=== PATIENT | female | born 1965 | race African-American/Black ===

== ENCOUNTER 2019-11-14 16:31 | Emergency (ER) | payer BC ==
[~2019-11-14] VITALS: Ht 149.9 cm; Wt 75.3 kg
== END 2019-11-14 17:21 | disposition home or self-care (01) ==
LOC: FSED 16:31
DX: J32.9 Chronic sinusitis, unspecified (principal)
CPT/HCPCS: 99282

== ENCOUNTER → 2020-10-09 | Outpatient (CLI) | payer OTHER ==
[~2020-10-09] MED LIST: COVID-19 VACC, MRNA(MODERNA)/PF 100 MCG/0.5 ML VIAL IM ONE
== END ==
LOC: VACCPMC 16:30
DX: Z23 Encounter for immunization (principal); Z20.828 Contact with and (suspected) exposure to other viral communicable diseases

== ENCOUNTER → 2020-11-18 | Outpatient (CLI) | payer OTHER | END | DRG 951 | LOC: VACCPMC 10:37 | DX: Z23 Encounter for immunization (principal); Z20.822 Contact with and (suspected) exposure to COVID-19 | CPT/HCPCS: 0012A; 91301 ==

== ENCOUNTER → 2022-03-05 | Outpatient (CLI) | payer BC | LOC: US 16:05 | PROVIDERS: ATTEND Family Medicine | DX: R94.5 Abnormal results of liver function studies (principal) | CPT/HCPCS: 74176; 76705 ==

== ENCOUNTER → 2024-04-25 | Outpatient (REF) | payer BC | LOC: RAD 14:14 | PROVIDERS: ATTEND Family Medicine | DX: R06.02 Shortness of breath (principal); R60.9 Edema, unspecified | CPT/HCPCS: 93306 ==

== ENCOUNTER 2024-07-17 11:30 | Inpatient (IN) | payer BC ==
[~2024-07-17] VITALS: Ht 149.9 cm; Wt 67.8 kg
[2024-07-17] VITALS (9 sets, daily range): BP systolic 147–176; BP diastolic 81–104; PULSE 96–135; RESP 18–27; TEMP 98.3–100.1; O2SAT 100
[2024-07-17 12:30] LABS: BASOPHILS # (AUTO) 0.1 (0.0-0.1); BASOPHILS % 0.7 % (0.0-1.0); EOSINOPHILS % 0.3 % (0.0-6.0); HEMATOCRIT 42.8 % (34.2-44.1); HEMOGLOBIN 13.6 g/dL (12.0-16.0); LYMPHOCYTES # (AUTO) 1.6 (1.0-3.2); MEAN CORPUSCULAR HEMOGLOBIN 31.8 pg (28-32); MEAN CORPUSCULAR HGB CONC 31.8 g/dL (31-35); MONOCYTES # (AUTO) 0.6 (0.2-0.8); MONOCYTES % 4.9 % (4.4-11.3); NEUTROPHILS # (AUTO) 8.4 (2.1-6.9); NEUTROPHILS % 72.6 % (38.7-80.0); PLATELET COUNT 276 x10e3/uL (140-360); RED BLOOD COUNT 4.28 x10e6/uL (3.6-5.1); RED CELL DISTRIBUTION WIDTH 14.5 % (11.7-14.4); WHITE BLOOD COUNT 11.56 x10e3/uL (4.8-10.8)
[2024-07-17 12:59] LABS: ALBUMIN 2.9 g/dL (3.5-5.0); ALBUMIN/GLOBULIN RATIO 0.8 (0.8-2.0); BILIRUBIN,TOTAL 0.4 mg/dL (0.2-1.2); CREATININE, SERUM 1.49 mg/dL (0.57-1.11); TOTAL PROTEIN 6.6 g/dL (6.5-8.1)
[2024-07-17] MEDS: LABETALOL HCL 5 MG/ML 20ML VIAL IV STA (13:19)
[2024-07-17 13:28] LABS: CLARITY,URINE CLEAR (CLEAR); COLOR,URINE STRAW (YELLOW); LEUKOCYTE ESTERASE ,URINE NEGATIVE (NEGATIVE); PH,URINE 6 (5 - 7)
[2024-07-17 13:29] LABS: BILIRUBIN,URINE NEGATIVE (NEGATIVE); GLUCOSE, URINE >=1000 (NEGATIVE); KETONES,URINE NEGATIVE (NEGATIVE); NITRITE,URINE NEGATIVE (NEGATIVE); PROTEIN,URINE DIPSTICK >=300 (NEGATIVE); URINE UROBILINOGEN 0.2 mg/dL (0.2 - 1)
[2024-07-17 13:30] LABS: BACTERIA,URINE FEW /HPF; EPITHELIAL CELLS,URINE RARE /LPF; RBC,URINE 0-5 /HPF (0-5); WBC,URINE (MAN) 0-5 /HPF (0-5)
[2024-07-17] MEDS: FUROSEMIDE INJ 10 MG/ML 4 ML VIAL IV ONE (14:36)
[2024-07-17] MEDS ORDERED: SODIUM CHLORIDE FLUSH 10 ML SYR INJ PRN (14:45)
[2024-07-17] MEDS: ASPIRIN 81 MG CHEW TAB PO ONE (16:01)
[2024-07-17] MEDS: NIFEDIPINE CR 30 MG TAB PO SCH (16:01)
[2024-07-17] MEDS: HYDRALAZINE HCL 20 MG/ML VIAL IV PRN (16:02)
[2024-07-17] MEDS: MUPIROCIN 2% OINT 22 GM TUBE NS SCH (16:02)
[2024-07-17 17:13] LABS: TROPONIN I 0.047 ng/mL (0-0.300)
[2024-07-17] MEDS: ACETAMINOPHEN 325 MG TAB PO PRN (20:26)
[2024-07-17] MEDS: LABETALOL HCL 5 MG/ML 20ML VIAL IV PRN (21:19)
[2024-07-17] MEDS ORDERED: DOCUSATE SODIUM 100 MG CAP PO PRN (21:30)
[2024-07-17] MEDS ORDERED: LIDOCAINE 4% PATCH TP PRN (21:30)
[2024-07-17] MEDS ORDERED: DIPHENHYDRAMINE HCL 25 MG CAP PO PRN (21:30)
[2024-07-17] MEDS ORDERED: DEXTROSE 50% SYRINGE 50 ML IV PRN ×2 (21:30)
[2024-07-17] MEDS ORDERED: POTASSIUM CHLORIDE 20 MEQ TAB CR PO PRN (21:30)
[2024-07-17] MEDS ORDERED: ALBUTEROL/IPRATROPIUM 3 ML NEB NEB PRN (21:30)
[2024-07-17] MEDS ORDERED: MELATONIN 5 MG TABLET PO PRN (21:30)
[2024-07-17] MEDS ORDERED: BENZONATATE 100 MG CAP PO PRN (21:30)
[2024-07-17] MEDS: METOPROLOL TARTRATE 25 MG TAB PO SCH (21:58)
[2024-07-17] MEDS: INSULIN GLARGINE 100 UNITS/ML VIAL SQ SCH (22:01)
[2024-07-17] MEDS: INSULIN LISPRO 100 UNIT/1 ML 3ML VIAL SQ SCH (22:02)
[2024-07-18] VITALS (24 sets, daily range): BP systolic 123–223; BP diastolic 67–127; PULSE 91–112; RESP 14–31; TEMP 98.1–99; O2SAT 96–100
[2024-07-18] MEDS: FUROSEMIDE INJ 100 MG in SODIUM CHLORIDE 0.9% 90 ML IV SCH ×2 (00:42→10:24)
[2024-07-18] MEDS: HYDRALAZINE HCL 20 MG/ML VIAL IV PRN (05:21)
[2024-07-18] MEDS: LABETALOL HCL 5 MG/ML 20ML VIAL IV STA (06:20)
[2024-07-18 06:52] LABS: BASOPHILS % 0.4 % (0.0-1.0); EOSINOPHILS % 0.3 % (0.0-6.0); HEMATOCRIT 43.7 % (34.2-44.1); HEMOGLOBIN 13.8 g/dL (12.0-16.0); LYMPHOCYTES # (AUTO) 1.5 (1.0-3.2); LYMPHOCYTES % 13.6 % (18.0-39.1); MEAN CORPUSCULAR HEMOGLOBIN 31.7 pg (28-32); MEAN CORPUSCULAR HGB CONC 31.6 g/dL (31-35); MEAN CORPUSCULAR VOLUME 100.5 fL (81-99); MONOCYTES # (AUTO) 0.6 (0.2-0.8); MONOCYTES % 5.3 % (4.4-11.3); NEUTROPHILS # (AUTO) 7.9 (2.1-6.9); NEUTROPHILS % 73.6 % (38.7-80.0); PLATELET COUNT 268 x10e3/uL (140-360); RED BLOOD COUNT 4.35 x10e6/uL (3.6-5.1); RED CELL DISTRIBUTION WIDTH 14.3 % (11.7-14.4); WHITE BLOOD COUNT 10.76 x10e3/uL (4.8-10.8)
[2024-07-18 07:33] LABS: ALBUMIN 2.7 g/dL (3.5-5.0); ALBUMIN/GLOBULIN RATIO 0.8 (0.8-2.0); ANION GAP 20.6 mmol/L (8-16); BILIRUBIN,TOTAL 0.3 mg/dL (0.2-1.2); CALCIUM 8.8 mg/dL (8.4-10.2); CREATININE, SERUM 1.85 mg/dL (0.57-1.11); POTASSIUM 3.6 mmol/L (3.5-5.1); TOTAL PROTEIN 6.2 g/dL (6.5-8.1)
[2024-07-18 07:55] LABS: TROPONIN I 0.099 ng/mL (0-0.300)
[2024-07-18 08:08] LABS: CHOL/HDL RATIO 6.6 (3.0-3.6); CHOLESTEROL 375 MD/DL (0-199); HDL CHOLESTEROL 57 MG/DL (40-60); MAGNESIUM 1.8 MG/DL (1.3-2.1); PHOSPHORUS 4.3 MG/DL (2.3-4.7); TRIGLYCERIDES 796 MG/DL (0-149)
[2024-07-18] MEDS: PANTOPRAZOLE SOD 40 MG TABEC PO SCH (08:27)
[2024-07-18 08:29] LABS: THYROID STIMULATING HORMONE 1.641 uIU/mL (0.350-4.940)
[2024-07-18] MEDS: LABETALOL HCL 5 MG/ML 20ML VIAL IV ONE (08:31)
[2024-07-18] MEDS: ACETAMINOPHEN 325 MG TAB PO PRN (08:38)
[2024-07-18] MEDS ORDERED: LABETALOL HCL 5 MG/ML 20ML VIAL IV PRN (10:00)
[2024-07-18] MEDS: ASPIRIN 81 MG ENTERIC COATED PO SCH (10:26)
[2024-07-18] MEDS: HEPARIN SOD (PORCINE) 5,000 UNIT/ML VIAL SC SCH (10:26)
[2024-07-18] MEDS: CARVEDILOL 12.5 MG TAB PO SCH (10:27)
[2024-07-18] MEDS: ONDANSETRON HCL INJ 2MG/ML 2ML 2 MG/ML VIAL IV PRN (12:56)
[2024-07-18] MEDS: HYDROCODONE/APAP 5MG-325MG TAB PO PRN (12:57)
[2024-07-18] MEDS ORDERED: ALBUMIN 25% 12.5GM 0.25 GM/ML BTL IV SCH (14:00)
[2024-07-18] MEDS: ALBUMIN 25% 12.5GM 50ML 50 ML IV SCH (15:02)
[2024-07-18] MEDS: FENOFIBRATE 145 MG TAB PO SCH (15:05)
[2024-07-18] MEDS ORDERED: ENOXAPARIN SOD INJ 40 MG/0.4 ML SYR SC SCH (17:00)
[2024-07-18] MEDS: SUMATRIPTAN SUCCINATE 6 MG/0.5 ML VIAL SC ONE (19:48)
[2024-07-18] MEDS ORDERED: ATORVASTATIN 40 MG TAB PO SCH (21:00)
[2024-07-18] MEDS: ATORVASTATIN 40 MG TAB PO SCH (22:02)
[2024-07-19] VITALS (28 sets, daily range): BP systolic 88–170; BP diastolic 61–108; PULSE 93–120; RESP 16–31; TEMP 98.2–98.9; O2SAT 92–100
[2024-07-19 06:13] LABS: COMPLEMENT C3 156 mg/dL (82-167)
[2024-07-19 06:47] LABS: BASOPHILS % 0.5 % (0.0-1.0); EOSINOPHILS % 0.5 % (0.0-6.0); HEMATOCRIT 37.2 % (34.2-44.1); HEMOGLOBIN 11.9 g/dL (12.0-16.0); LYMPHOCYTES # (AUTO) 1.3 (1.0-3.2); LYMPHOCYTES % 15.1 % (18.0-39.1); MEAN CORPUSCULAR HEMOGLOBIN 31.8 pg (28-32); MEAN CORPUSCULAR VOLUME 99.5 fL (81-99); MONOCYTES # (AUTO) 0.4 (0.2-0.8); MONOCYTES % 5.1 % (4.4-11.3); NEUTROPHILS # (AUTO) 6.4 (2.1-6.9); PLATELET COUNT 232 x10e3/uL (140-360); RED BLOOD COUNT 3.74 x10e6/uL (3.6-5.1); RED CELL DISTRIBUTION WIDTH 14.5 % (11.7-14.4); WHITE BLOOD COUNT 8.48 x10e3/uL (4.8-10.8)
[2024-07-19 06:58] LABS: COMPLEMENT C4 40 mg/dL (12-38)
[2024-07-19 07:14] LABS: ALBUMIN 3.6 g/dL (3.5-5.0); ALBUMIN/GLOBULIN RATIO 1.5 (0.8-2.0); ANION GAP 16.5 mmol/L (8-16); BILIRUBIN,TOTAL 0.8 mg/dL (0.2-1.2); CALCIUM 8.8 mg/dL (8.4-10.2); CREATININE, SERUM 1.8 mg/dL (0.57-1.11); POTASSIUM 3.5 mmol/L (3.5-5.1)
[2024-07-19 11:49] LABS: ANTI DNA DS ANTIBODY <1 IU/mL (0-9)
[2024-07-19] MEDS: ALBUMIN 25% 12.5GM 50ML 50 ML IV ONE (12:33)
[2024-07-19] MEDS: SUMATRIPTAN SUCCINATE 6 MG/0.5 ML VIAL SC ONE (12:37)
[2024-07-19] MEDS: METOLAZONE 5 MG TAB PO ONE (12:44)
[2024-07-19] MEDS: INSULIN GLARGINE 100 UNITS/ML VIAL SQ SCH (20:52)
[2024-07-20] VITALS (23 sets, daily range): BP systolic 100–169; BP diastolic 65–103; PULSE 83–113; RESP 12–29; TEMP 98.2–98.8; O2SAT 92–100
[2024-07-20 06:43] LABS: BASOPHILS % 0.1 % (0.0-1.0); EOSINOPHILS % 0.4 % (0.0-6.0); HEMOGLOBIN 12.1 g/dL (12.0-16.0); LYMPHOCYTES # (AUTO) 1.2 (1.0-3.2); LYMPHOCYTES % 15.1 % (18.0-39.1); MEAN CORPUSCULAR HEMOGLOBIN 31.3 pg (28-32); MEAN CORPUSCULAR VOLUME 100.8 fL (81-99); MONOCYTES # (AUTO) 0.4 (0.2-0.8); MONOCYTES % 5.5 % (4.4-11.3); NEUTROPHILS # (AUTO) 5.8 (2.1-6.9); NEUTROPHILS % 75.4 % (38.7-80.0); PLATELET COUNT 234 x10e3/uL (140-360); RED BLOOD COUNT 3.87 x10e6/uL (3.6-5.1); RED CELL DISTRIBUTION WIDTH 14.2 % (11.7-14.4); WHITE BLOOD COUNT 7.68 x10e3/uL (4.8-10.8)
[2024-07-20 07:04] LABS: ALBUMIN 3.5 g/dL (3.5-5.0); ALBUMIN/GLOBULIN RATIO 1.5 (0.8-2.0); ANION GAP 15.2 mmol/L (8-16); BILIRUBIN,TOTAL 0.9 mg/dL (0.2-1.2); CALCIUM 8.8 mg/dL (8.4-10.2); CREATININE, SERUM 2.19 mg/dL (0.57-1.11); TOTAL PROTEIN 5.8 g/dL (6.5-8.1)
[2024-07-20 07:10] LABS: POTASSIUM 3.2 mmol/L (3.5-5.1)
[2024-07-20] MEDS: CARVEDILOL 12.5 MG TAB PO SCH (09:32)
[2024-07-20] MEDS: NIFEDIPINE CR 30 MG TAB PO SCH (09:32)
[2024-07-20 18:39] LABS: TOTAL PROTEIN 24HR, URINE 9080.9 mg/24hr (50-100); TOTAL PROTEIN, URINE 255.8 mg/dL (1-14)
[2024-07-21] VITALS (19 sets, daily range): BP systolic 134–172; BP diastolic 67–90; PULSE 73–106; RESP 12–24; TEMP 97.9–99.1; O2SAT 93–99
[2024-07-21 06:32] LABS: ANION GAP 14.4 mmol/L (8-16); CALCIUM 8.7 mg/dL (8.4-10.2); CREATININE, SERUM 1.88 mg/dL (0.57-1.11)
[2024-07-21 06:33] LABS: POTASSIUM 3.4 mmol/L (3.5-5.1)
[2024-07-21] MEDS: SIMETHICONE 80 MG CHEW PO PRN (13:03)
[2024-07-21] MEDS: SUMATRIPTAN SUCCINATE 6 MG/0.5 ML VIAL SC ONE (17:04)
[2024-07-21 20:22] LABS: CREATININE,URINE RANDOM 69.49 mg/dL (47-110)
[2024-07-21 20:37] LABS: TOTAL PROTEIN, URINE 345.6 mg/dL (1-14)
[2024-07-22] VITALS (10 sets, daily range): BP systolic 129–164; BP diastolic 72–91; PULSE 80–106; RESP 16–20; TEMP 98–98.4; O2SAT 95–100
[2024-07-22 06:44] LABS: BASOPHILS # (AUTO) 0.1 (0.0-0.1); BASOPHILS % 0.7 % (0.0-1.0); EOSINOPHILS # (AUTO) 0.1 (0.0-0.4); EOSINOPHILS % 1.3 % (0.0-6.0); HEMATOCRIT 35.9 % (34.2-44.1); HEMOGLOBIN 11.3 g/dL (12.0-16.0); LYMPHOCYTES # (AUTO) 1.2 (1.0-3.2); LYMPHOCYTES % 17.5 % (18.0-39.1); MEAN CORPUSCULAR HEMOGLOBIN 31.6 pg (28-32); MEAN CORPUSCULAR HGB CONC 31.5 g/dL (31-35); MEAN CORPUSCULAR VOLUME 100.3 fL (81-99); MONOCYTES # (AUTO) 0.5 (0.2-0.8); MONOCYTES % 7.6 % (4.4-11.3); NEUTROPHILS # (AUTO) 4.8 (2.1-6.9); NEUTROPHILS % 69.3 % (38.7-80.0); PLATELET COUNT 247 x10e3/uL (140-360); RED BLOOD COUNT 3.58 x10e6/uL (3.6-5.1); WHITE BLOOD COUNT 6.98 x10e3/uL (4.8-10.8)
[2024-07-22 07:02] LABS: ALBUMIN/GLOBULIN RATIO 1.2 (0.8-2.0); ANION GAP 15.3 mmol/L (8-16); BILIRUBIN,TOTAL 0.4 mg/dL (0.2-1.2); CALCIUM 8.7 mg/dL (8.4-10.2); CREATININE, SERUM 2.31 mg/dL (0.57-1.11); TOTAL PROTEIN 5.6 g/dL (6.5-8.1)
[2024-07-22 07:09] LABS: POTASSIUM 3.3 mmol/L (3.5-5.1)
[2024-07-22] MEDS: ACETAMIN/BUTALBITAL/CAFFEINE TAB PO PRN (11:45)
[2024-07-22] MEDS: POTASSIUM CHLORIDE 20 MEQ TAB CR PO ONE (14:48)
[2024-07-22] MEDS: SUMATRIPTAN SUCCINATE 6 MG/0.5 ML VIAL SC ONE (17:52)
[2024-07-23] VITALS (10 sets, daily range): BP systolic 142–180; BP diastolic 73–91; PULSE 74–94; RESP 16–18; TEMP 98.2–98.4; O2SAT 98–100
[2024-07-23 05:26] LABS: BASOPHILS % 0.3 % (0.0-1.0); EOSINOPHILS # (AUTO) 0.1 (0.0-0.4); EOSINOPHILS % 1.1 % (0.0-6.0); HEMATOCRIT 37.3 % (34.2-44.1); HEMOGLOBIN 11.5 g/dL (12.0-16.0); LYMPHOCYTES # (AUTO) 1.4 (1.0-3.2); MEAN CORPUSCULAR HEMOGLOBIN 31.5 pg (28-32); MEAN CORPUSCULAR HGB CONC 30.8 g/dL (31-35); MEAN CORPUSCULAR VOLUME 102.2 fL (81-99); MONOCYTES # (AUTO) 0.6 (0.2-0.8); MONOCYTES % 8.6 % (4.4-11.3); NEUTROPHILS # (AUTO) 4.9 (2.1-6.9); NEUTROPHILS % 66.3 % (38.7-80.0); PLATELET COUNT 237 x10e3/uL (140-360); RED BLOOD COUNT 3.65 x10e6/uL (3.6-5.1); RED CELL DISTRIBUTION WIDTH 13.9 % (11.7-14.4); WHITE BLOOD COUNT 7.31 x10e3/uL (4.8-10.8)
[2024-07-23 05:50] LABS: CREATININE, SERUM 1.83 mg/dL (0.57-1.11)
[2024-07-23] MEDS: LOPERAMIDE HCL 2 MG CAP PO ONE (17:44)
[2024-07-24] VITALS (9 sets, daily range): BP systolic 120–160; BP diastolic 51–99; PULSE 59–101; RESP 16–18; TEMP 97.5–98.3; O2SAT 98–100
[2024-07-24 05:04] LABS: BASOPHILS # (AUTO) 0.1 (0.0-0.1); BASOPHILS % 0.7 % (0.0-1.0); EOSINOPHILS # (AUTO) 0.1 (0.0-0.4); EOSINOPHILS % 0.8 % (0.0-6.0); HEMATOCRIT 35.1 % (34.2-44.1); HEMOGLOBIN 11.1 g/dL (12.0-16.0); LYMPHOCYTES # (AUTO) 1.5 (1.0-3.2); LYMPHOCYTES % 19.8 % (18.0-39.1); MEAN CORPUSCULAR HEMOGLOBIN 31.7 pg (28-32); MEAN CORPUSCULAR HGB CONC 31.6 g/dL (31-35); MEAN CORPUSCULAR VOLUME 100.3 fL (81-99); MONOCYTES # (AUTO) 0.6 (0.2-0.8); MONOCYTES % 8.5 % (4.4-11.3); NEUTROPHILS # (AUTO) 4.9 (2.1-6.9); NEUTROPHILS % 65.2 % (38.7-80.0); PLATELET COUNT 237 x10e3/uL (140-360); RED CELL DISTRIBUTION WIDTH 14.2 % (11.7-14.4); WHITE BLOOD COUNT 7.54 x10e3/uL (4.8-10.8)
[2024-07-24 05:29] LABS: ANION GAP 13.6 mmol/L (8-16); CALCIUM 8.7 mg/dL (8.4-10.2); CREATININE, SERUM 1.76 mg/dL (0.57-1.11); POTASSIUM 3.6 mmol/L (3.5-5.1)
[2024-07-24] MEDS ORDERED: LIDOCAINE HCL 1% LOCAL INJ 20 ML VIAL ONE (07:57)
[2024-07-24 08:08] LABS: INR 0.88; PROTHROMBIN TIME 12.4 seconds (11.9-14.5)
[2024-07-24] MEDS: NIFEDIPINE CR 30 MG TAB PO SCH (08:55)
[2024-07-24] MEDS ORDERED: MIDAZOLAM HCL 2 MG/2 ML VIAL ONE (11:40)
[2024-07-24] MEDS ORDERED: FENTANYL CITRATE/PF 100MCG/2 ML INJ ONE (11:40)
[2024-07-24] MEDS ORDERED: SODIUM CHLORIDE 0.9% 250ML 250 ML ONE (11:41)
[2024-07-24 22:24] LABS: HEMATOCRIT 34.3 % (34.2-44.1)
[2024-07-25] VITALS (10 sets, daily range): BP systolic 137–167; BP diastolic 68–87; PULSE 75–102; RESP 18–20; TEMP 98.2–98.7; O2SAT 99–100
[2024-07-25 06:32] LABS: ANION GAP 15.8 mmol/L (8-16); CALCIUM 8.9 mg/dL (8.4-10.2); CREATININE, SERUM 2.04 mg/dL (0.57-1.11); POTASSIUM 3.8 mmol/L (3.5-5.1)
[2024-07-25 06:49] LABS: BASOPHILS # (AUTO) 0.1 (0.0-0.1); EOSINOPHILS % 0.3 % (0.0-6.0); HEMATOCRIT 34.5 % (34.2-44.1); HEMOGLOBIN 10.3 g/dL (12.0-16.0); LYMPHOCYTES # (AUTO) 1.3 (1.0-3.2); LYMPHOCYTES % 16.4 % (18.0-39.1); MEAN CORPUSCULAR HEMOGLOBIN 31.9 pg (28-32); MEAN CORPUSCULAR HGB CONC 29.9 g/dL (31-35); MEAN CORPUSCULAR VOLUME 106.8 fL (81-99); MONOCYTES # (AUTO) 0.7 (0.2-0.8); MONOCYTES % 8.4 % (4.4-11.3); NEUTROPHILS # (AUTO) 5.4 (2.1-6.9); NEUTROPHILS % 69.5 % (38.7-80.0); PLATELET COUNT 223 x10e3/uL (140-360); RED BLOOD COUNT 3.23 x10e6/uL (3.6-5.1); RED CELL DISTRIBUTION WIDTH 14.6 % (11.7-14.4); WHITE BLOOD COUNT 7.75 x10e3/uL (4.8-10.8)
[2024-07-25] MEDS: HYDRALAZINE HCL 20 MG/ML VIAL ONE (12:19)
[2024-07-26 00:56] VITALS: BP 155/81; PULSE 84; RESP 17; TEMP 98.3; O2SAT 100
[2024-07-26 04:00] VITALS: PULSE 95; RESP 18; TEMP 98.2; O2SAT 100
[2024-07-26 06:00] VITALS: BP 162/86; PULSE 101
[2024-07-26 06:02] LABS: BASOPHILS # (AUTO) 0.1 (0.0-0.1); BASOPHILS % 0.6 % (0.0-1.0); EOSINOPHILS # (AUTO) 0.1 (0.0-0.4); EOSINOPHILS % 0.7 % (0.0-6.0); HEMATOCRIT 34.4 % (34.2-44.1); LYMPHOCYTES # (AUTO) 1.5 (1.0-3.2); LYMPHOCYTES % 16.7 % (18.0-39.1); MEAN CORPUSCULAR HEMOGLOBIN 32.1 pg (28-32); MEAN CORPUSCULAR VOLUME 100.3 fL (81-99); MONOCYTES # (AUTO) 0.7 (0.2-0.8); MONOCYTES % 7.7 % (4.4-11.3); NEUTROPHILS # (AUTO) 6.2 (2.1-6.9); NEUTROPHILS % 69.4 % (38.7-80.0); PLATELET COUNT 257 x10e3/uL (140-360); RED BLOOD COUNT 3.43 x10e6/uL (3.6-5.1); RED CELL DISTRIBUTION WIDTH 14.4 % (11.7-14.4); WHITE BLOOD COUNT 8.94 x10e3/uL (4.8-10.8)
[2024-07-26 06:31] LABS: ANION GAP 15.5 mmol/L (8-16); CREATININE, SERUM 1.58 mg/dL (0.57-1.11); POTASSIUM 3.5 mmol/L (3.5-5.1)
[2024-07-26 08:36] VITALS: BP 164/82; PULSE 99; RESP 18; TEMP 98.5; O2SAT 99
[2024-07-26 11:40] VITALS: PULSE 88; RESP 20; O2SAT 99
[2024-07-26 12:16] VITALS: BP 144/85; PULSE 100; RESP 18; TEMP 98.5; O2SAT 99
[2024-07-26] MEDS ORDERED: POTASSIUM CHLO10 ME1 PO (12:25)
[2024-07-26] MEDS ORDERED: SEMGLEE (Y100 UNIT/2 SQ ×2 (12:25→13:09)
[2024-07-26] MEDS ORDERED: METOPROLOL SUCC50 MG PO (12:25)
[2024-07-26] MEDS ORDERED: FARXIGA10 MG PO (12:25)
[2024-07-26] MEDS ORDERED: OZEMPIC0.25 MG/02 SQ (12:25)
[2024-07-26] MEDS ORDERED: HYDRALAZINE HCL10 MG PO (12:25)
[2024-07-26] MEDS ORDERED: BENICAR20 MG PO (12:25)
[2024-07-27 06:35] LABS: SPE ALPHA 1 GLOBULIN 0.2; SPE ALPHA 2 GLOBULIN 1.1
[2024-07-27 06:36] LABS: GLOBULIN TOTAL 2.8; SPE GAMMA GLOBULIN 0.4; SPE TOTAL PROTEIN 5.7
== END 2024-07-26 15:22 | disposition home or self-care (01) | DRG 292 ==
LOC: ER 12:06 → ERHOLD 14:43 → ICU 21:05 → MED/SURG2 07-22 00:37
PROVIDERS: ADMIT Internal Medicine; ATTEND Internal Medicine
PROC: 0TB13ZX Excision of Left Kidney, Percutaneous Approach, Diagnostic (ICD-10-PCS; principal; 2024-07-24)
DX: I13.0 Hypertensive heart and chronic kidney disease with heart failure and stage 1 through stage 4 chronic kidney disease, or unspecified chronic kidney disease (principal); I50.30 Unspecified diastolic (congestive) heart failure; N17.9 Acute kidney failure, unspecified; E11.22 Type 2 diabetes mellitus with diabetic chronic kidney disease; I16.0 Hypertensive urgency; N18.32 Chronic kidney disease, stage 3b; E11.65 Type 2 diabetes mellitus with hyperglycemia; E11.40 Type 2 diabetes mellitus with diabetic neuropathy, unspecified; Z79.4 Long term (current) use of insulin; Z79.85 Long-term (current) use of injectable non-insulin antidiabetic drugs; Z79.84 Long term (current) use of oral hypoglycemic drugs; R51.9 Headache, unspecified; R31.0 Gross hematuria; E87.6 Hypokalemia; K76.0 Fatty (change of) liver, not elsewhere classified; E78.5 Hyperlipidemia, unspecified; E78.1 Pure hyperglyceridemia; E88.09 Other disorders of plasma-protein metabolism, not elsewhere classified; Z86.73 Personal history of transient ischemic attack (TIA), and cerebral infarction without residual deficits; Z79.899 Other long term (current) drug therapy
CPT/HCPCS: 36415; 50200; 70450; 70551; 71045; 74470; 76770; 76942; 80048; 80053; 80061; 81001; 81050; 82550; 82570; 82948; 83036; 83735; 83880; 84100; 84156; 84165; 84443; 84484; 85014; 85018; 85025; 85610; 86039; 86160; 86225; 93005; 93306; 94799; 96372; 99152; 99153; 99252; 99284; J0360; J1644; J1815; J1940; J2003; J2250; J2405; J3030; J7050

== ENCOUNTER → 2024-10-27 | Outpatient (REF) | payer BC ==
[~2024-10-27] MED LIST changes: +BENICAR20 MG PO; -COVID-19 VACC, MRNA(MODERNA)/PF 100 MCG/0.5 ML VIAL IM ONE; +FARXIGA10 MG PO; +HYDRALAZINE HCL10 MG PO; +METOPROLOL SUCC50 MG PO; +OZEMPIC0.25 MG/02 SQ; +POTASSIUM CHLO10 ME1 PO; +SEMGLEE (Y100 UNIT/2 SQ
== END ==
LOC: US 08:33
PROVIDERS: ATTEND Radiology Body Imaging
DX: N18.32 Chronic kidney disease, stage 3b (principal)
CPT/HCPCS: 76700; 76856

== ENCOUNTER 2024-10-30 20:30 | Emergency (ER) | payer BC ==
[~2024-10-30] VITALS: Ht 149.9 cm; Wt 67.6 kg
[2024-10-30 20:40] VITALS: PULSE 110; RESP 19; TEMP 98
[2024-10-30 20:57] LABS: BASOPHILS % 0.6 % (0.0-1.0); EOSINOPHILS # (AUTO) 0.1 (0.0-0.4); EOSINOPHILS % 0.7 % (0.0-6.0); HEMOGLOBIN 12.4 g/dL (12.0-16.0); LYMPHOCYTES # (AUTO) 1.8 (1.0-3.2); LYMPHOCYTES % 24.9 % (18.0-39.1); MEAN CORPUSCULAR HEMOGLOBIN 32.1 pg (28-32); MEAN CORPUSCULAR VOLUME 103.6 fL (81-99); MONOCYTES # (AUTO) 0.5 (0.2-0.8); MONOCYTES % 7.2 % (4.4-11.3); NEUTROPHILS # (AUTO) 4.7 (2.1-6.9); NEUTROPHILS % 64.4 % (38.7-80.0); PLATELET COUNT 236 x10e3/uL (140-360); RED BLOOD COUNT 3.86 x10e6/uL (3.6-5.1); RED CELL DISTRIBUTION WIDTH 14.2 % (11.7-14.4); WHITE BLOOD COUNT 7.23 x10e3/uL (4.8-10.8)
[2024-10-30 21:22] LABS: ALBUMIN 3.5 g/dL (3.5-5.0); ALBUMIN/GLOBULIN RATIO 1.1 (0.8-2.0); ANION GAP 18.5 mmol/L (8-16); BILIRUBIN,TOTAL 0.4 mg/dL (0.2-1.2); CALCIUM 9.5 mg/dL (8.4-10.2); CREATININE, SERUM 1.99 mg/dL (0.57-1.11); POTASSIUM 3.5 mmol/L (3.5-5.1); TOTAL PROTEIN 6.6 g/dL (6.5-8.1)
[2024-10-30] MEDS: SODIUM CHLORIDE 0.9% 1000ML 1,000 ML IV STA (21:24)
[2024-10-30 22:51] VITALS: BP 145/84; PULSE 87; RESP 16; TEMP 98.2; O2SAT 98
== END 2024-10-30 22:55 | disposition home or self-care (01) ==
LOC: ER 20:35
DX: S00.83XA Contusion of other part of head, initial encounter (principal); W18.39XA Other fall on same level, initial encounter; Y92.89 Other specified places as the place of occurrence of the external cause; I10 Essential (primary) hypertension; G62.9 Polyneuropathy, unspecified
CPT/HCPCS: 36415; 70450; 71045; 72125; 80053; 83690; 83880; 85025; 99284